=== PATIENT | female | born 1965 ===

== ENCOUNTER 2018-05-12 11:46 | Outpatient (CLI) | payer OTHER ==
[~2018-05-12] VITALS: Ht 160 cm; Wt 68.0 kg
== END 2018-05-12 12:00 | disposition home or self-care (01) ==
LOC: OFIC 805 11:46
DX: C73 Malignant neoplasm of thyroid gland (principal)

== ENCOUNTER 2018-05-27 14:50 | Inpatient (IN) | payer OTHER ==
[~2018-05-27] VITALS: Ht 160 cm; Wt 63.5 kg
[~2018-05-27 14:50] MED LIST: LOSARTAN POTAS100 MG PO; TOPROL XL100 M1 PO
== END 2018-06-02 14:44 | disposition home or self-care (01) | DRG 627 ==
LOC: CIR.AMB 05-31 14:00 → EDSTATUS 05-31 14:00 → CIR.AMB 05-31 14:56 → SURG 05-31 21:00 → O/R 05-31 21:00 → SURG 06-01 16:43
PROVIDERS: ADMIT Otolaryngology
PROC: 0GTH0ZZ Resection of Right Thyroid Gland Lobe, Open Approach (ICD-10-PCS; principal; 2018-05-31 14:00)
DX: C73 Malignant neoplasm of thyroid gland (principal)

== ENCOUNTER 2018-06-09 11:48 | Outpatient (CLI) | payer OTHER ==
[~2018-06-09] VITALS: Ht 152.4 cm; Wt 68.0 kg
== END 2018-06-09 12:10 | disposition home or self-care (01) ==
LOC: OFIC 805 11:48
DX: C73 Malignant neoplasm of thyroid gland (principal)

== ENCOUNTER 2018-06-23 14:32 | Outpatient (CLI) | payer OTHER ==
[~2018-06-23] VITALS: Ht 152.4 cm; Wt 68.0 kg
== END 2018-06-23 14:45 | disposition home or self-care (01) ==
LOC: OFIC 805 14:32
DX: C73 Malignant neoplasm of thyroid gland (principal)

== ENCOUNTER 2018-09-06 10:48 | Outpatient (CLI) | payer OTHER ==
[~2018-09-06] VITALS: Ht 152.4 cm; Wt 68.0 kg
== END 2018-09-06 11:05 | disposition home or self-care (01) ==
LOC: OFIC 805 10:48
DX: C73 Malignant neoplasm of thyroid gland (principal)

== ENCOUNTER 2018-09-26 08:51 | Outpatient (CLI) | payer OTHER ==
[~2018-09-26] VITALS: Ht 152.4 cm; Wt 68.0 kg
== END 2018-09-26 09:10 | disposition home or self-care (01) ==
LOC: OFIC 805 08:51
DX: H93.13 Tinnitus, bilateral (principal); Z85.850 Personal history of malignant neoplasm of thyroid; M54.2 Cervicalgia

== ENCOUNTER 2018-11-03 10:42 | Outpatient (CLI) | payer OTHER ==
[~2018-11-03] VITALS: Ht 152.4 cm; Wt 68.0 kg
== END 2018-11-03 11:00 | disposition home or self-care (01) ==
LOC: OFIC 805 10:42
DX: M54.2 Cervicalgia (principal); C73 Malignant neoplasm of thyroid gland

== ENCOUNTER 2019-12-20 09:32 | Outpatient (CLI) | payer OTHER | END 2019-12-20 10:30 | disposition home or self-care (01) | LOC: OFIC 805 09:32 | PROVIDERS: ATTEND Otolaryngology | DX: C73 Malignant neoplasm of thyroid gland (principal); H93.13 Tinnitus, bilateral; M54.2 Cervicalgia; R13.19 Other dysphagia; R07.0 Pain in throat ==

== ENCOUNTER 2024-05-03 05:45 | Day surgery (SDC) | payer OTHER ==
[2024-05-03] MEDS ORDERED: fentaNYL CITRATE 50 MCG/ML AMPUL IV PUSH ONE (09:15)
[2024-05-03] MEDS ORDERED: DIPHENHYDRAMINE HCL 50 MG/ML VIAL 1ML IV ONE ×2 (09:15)
[2024-05-03] MEDS ORDERED: ONDANSETRON HCL 2 MG/ML VIAL IV ONE (09:15)
[2024-05-03] MEDS ORDERED: MIDAZOLAM HCL 2 MG/2 ML VIAL IV ONE (09:15)
== END 2024-05-03 10:40 | disposition home or self-care (01) ==
LOC: AMB-ENDOS 05:45
PROVIDERS: ATTEND Colon & Rectal Surgery
DX: K62.1 Rectal polyp (principal); Z12.11 Encounter for screening for malignant neoplasm of colon; K62.5 Hemorrhage of anus and rectum; K64.8 Other hemorrhoids